=== PATIENT | male | born 1960 | race Caucasian/White ===

== ENCOUNTER 2017-09-28 18:40 | Emergency (ER) | payer BC ==
[2017-09-28] MEDS ORDERED: predniSONE 20 MG Tab PO ONE (19:27)
[2017-09-28] MEDS ORDERED: Ketorolac 60 MG/2 ML SDV IM ONE (19:27)
--- NOTE | 2017-09-28 19:33 | EDM.PDOC ---
ED HPI GENERAL MEDICAL PROBLEM - General Chief Complaint: Back Pain or Injury Stated Complaint: PT HAS BODY PAIN Time Seen by Provider: 09/28/17 19:21 - History of Present Illness INITIAL COMMENTS - FREE TEXT/NARRATIVE: HISTORY AND PHYSICAL: History of present illness: The patient is a 57-year-old male who follows with Dr. 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 He has no neurosensory changes in his leg and no weakness he has had no bowel or bladder disturbances. The patient says that this came on very gradually but he did do increase walking and activity a couple of days ago which she attributes to this exacerbation. Is not taking any [id number] medications for this pain. He has not contacted his provider about this problem. The patient denies any midline back pain and says it starts in his buttocks and then travels downward. Patient denies any other systemic complaints such as fever chills chest pain shortness of breath abdominal pain or urinary issues. The patient states he did not have any slips or falls or any direct trauma to this region Review of systems: As per history of present illness and below otherwise all systems reviewed and negative. Past medical history: As per history of present illness and as reviewed below otherwise noncontributory. Surgical history: As per history of present illness and as reviewed below otherwise noncontributory. Social history: No reported history of drug or alcohol abuse. Family history: As per history of present illness and as reviewed below otherwise noncontributory. Physical exam: Gen.: Well-developed well-nourished thin man who is nontoxic and prefers to sit on his left side as the pressure on his right side increases the pain. Vital signs are noted by me. Patient does move easily in the ED without much distress and ambulated into the ER without assistance HEENT: Atraumatic, normocephalic, negative for conjunctival pallor or scleral icterus, mucous membranes moist, throat clear, neck supple, nontender, trachea midline. Lungs: Clear to auscultation, breath sounds equal bilaterally, chest nontender. Heart: S1S2, regular rate and rhythm no overt murmurs Abdomen: Soft, nondistended, nontender. NABS Negative for costovertebral tenderness. Pelvis: Stable nontender. No lateral hip tenderness on the right Genitourinary: Deferred. Rectal: Deferred. Extremities: Atraumatic, negative for cords or calf pain. Neurovascular unremarkable. Patient has full range of motion of all extremities including the right lower extremity. Neuro: Awake, alert, oriented. Cranial nerves II through XII unremarkable. Cerebellum unremarkable. Motor and sensory unremarkable throughout. Exam nonfocal. Dorsi and plantar flexion is intact 5/5 inclusive of the great toe and patellar reflexes on the right is +2 over 4. He has normal tone throughout the right lower extremity. Back: There are no midline step-offs tenderness defects of the thoracic or lumbar spine and no soft tissue swelling or injuries are visualized. At palpation of the right buttocks cheek I am able to reproduce the pain as he states this is where it originates. Diagnostics: [] Therapeutics: Toradol Norflex prednisone I discussed with the patient that as he has not had any recent trauma x-rays and CTs of the bones will not yield much information and that if our care plan today does not improve his discomfort he may need an MRI as an outpatient. He currently does not meet criteria for an emergent MRI in the ER. I've advised him to call and follow-up with Dr. Soni in the clinic in the next few days and will give him medications for home. Advised him on reasons to return to the ED Impression: Right sciatica Definitive disposition and diagnosis as appropriate pending reevaluation and review of above. right hip Pain Score (Numeric/FACES): 6 - Related Data Allergies Allergy/AdvReac Type Severity Reaction Status Date / Time No Known Allergies Allergy Verified 09/28/17 19:09 Home Meds: Home Meds . [No Known Home Meds] 09/28/17 [History] Past Medical History HEENT History: Reports: None Cardiovascular History: Reports: None Respiratory History: Reports: None Gastrointestinal History: Reports: None Genitourinary History: Reports: None Musculoskeletal History: Reports: Other (See Below) Other Musculoskeletal History: Sciatica Neurological History: Reports: None Psychiatric History: Reports: Anxiety, Depression Endocrine/Metabolic History: Reports: None Hematologic History: Reports: None Immunologic History: Reports: None Oncologic (Cancer) History: Reports: None Dermatologic History: Reports: None - Infectious Disease History Infectious Disease History: Reports: None - Past Surgical History Musculoskeletal Surgical History: Reports: None Social & Family History - Family History Family Medical History: Noncontributory - Tobacco Use Smoking Status *Q: Current Every Day Smoker Years of Tobacco use: 40 Packs/Tins Daily: 0.5 - Caffeine Use Caffeine Use: Reports: Soda - Recreational Drug Use Recreational Drug Use: No ED ROS GENERAL - Review of Systems Review Of Systems: ROS reveals no pertinent complaints other than HPI. ED EXAM, GENERAL - Physical Exam Exam: See Below (See dictation) Course - Vital Signs Last Recorded V/S: Last Vital Signs Temp 36.8 C 09/28/17 19:09 Pulse 80 09/28/17 19:09 Resp 18 09/28/17 19:09 BP 98/60 09/28/17 19:09 Pulse Ox 98 09/28/17 19:09 - Orders/Labs/Meds Meds: Medications Discontinued Medications Generic Name Dose Route Start Last Admin Trade Name Linsey PRN Reason Stop Dose Admin Ketorolac Tromethamine 60 mg 09/28/17 19:27 Toradol IM 09/28/17 19:28 ONETIME ONE Orphenadrine Citrate 60 mg 09/28/17 19:27 Norflex IM 09/28/17 19:28 NOW ONE Prednisone 40 mg 09/28/17 19:27 Prednisone PO 09/28/17 19:28 ONETIME ONE Departure - Departure Time of Disposition: 19:32 Disposition: Home, Self-Care 01 Condition: Good Clinical Impression: Sciatica Qualifiers: Laterality: right Qualified Code(s): M54.31 - Sciatica, right side - Discharge Information Referrals: PCP,None [Primary Care Provider] - Additional Instructions: The following information is given to patients seen in the emergency department who are being discharged to home. This information is to outline your options for follow-up care. We provide all patients seen in our emergency department with a follow-up referral. The need for follow-up, as well as the timing and circumstances, are variable depending upon the specifics of your emergency department visit. If you don't have a primary care physician on staff, we will provide you with a referral. We always advise you to contact your personal physician following an emergency department visit to inform them of the circumstance of the visit and for follow-up with them and/or the need for any referrals to a consulting specialist. The emergency department will also refer you to a specialist when appropriate. This referral assures that you have the opportunity for followup care with a specialist. All of these measure are taken in an effort to provide you with optimal care, which includes your followup. Under all circumstances we always encourage you to contact your private physician who remains a resource for coordinating your care. When calling for followup care, please make the office aware that this follow-up is from your recent emergency room visit. If for any reason you are refused follow-up, please contact the [facility] emergency department at and ask to speak to the emergency department charge nurse. [address] [place] [address] [facility] Primary care- Internal Medicine and Family [address] [address] Please take medications as needed and prescribed and try to rest the area as much as possible. Please call your provider at [facility] to be seen in the next few days for reevaluation of his care plan and further management. If you' re unable to get into see him please call our clinic for follow-up. Return to ER as needed and as discussed
[2017-09-28] MEDS ORDERED: Acetaminophen/HYDROcodone 325-7.5 MG Tab PO ONE (19:34)
== END 2017-09-28 20:19 | disposition home or self-care (01) ==
LOC: MW.ED 18:40
DX: M54.41 Lumbago with sciatica, right side (principal); F17.210 Nicotine dependence, cigarettes, uncomplicated
CPT/HCPCS: 96372; 99283; A9270; J1885; J2360; 99284

== ENCOUNTER 2024-10-04 22:26 | Emergency (ER) | payer BC ==
[2024-10-04] MEDS: LORazepam 1 MG Tab PO ONE (23:11)
== END 2024-10-05 00:11 | disposition home or self-care (01) ==
LOC: MW.ED 22:26
DX: F41.9 Anxiety disorder, unspecified (principal); F17.210 Nicotine dependence, cigarettes, uncomplicated; Z79.899 Other long term (current) drug therapy
CPT/HCPCS: 99283; A9270